=== PATIENT | female | born 1995 | race Hispanic/Latino ===

== ENCOUNTER 2021-04-29 13:01 | Emergency (ER) | payer MEDICARE, MEDICAID ==
[2021-04-29 14:34] LABS: #Eosinphils 0.1 10x3/uL (0.0-0.5); #Monocytes 0.5 10x3/uL (0.0-1.1); %Basophils 0.2 % (0.0-2.0); %Eosinophils 0.7 % (0.0-6.0); %Lymphocytes 9.1 % (18.0-47.0); %Monocytes 5.4 % (0.0-10.0); %Neutrophils 84.1 % (40.0-75.0); Hemoglobin 11.1 g/dL (12.0-15.5); Mean Corpuscular HGB CONC 30.9 g/dL (32.0-36.0); Mean Corpuscular Hemoglobin 29.9 pg (27.0-33.0); Mean Corpuscular Volume 96.8 fl (81.6-98.3); Mean Platelet Volume 10.2 fl (7.4-10.4); Platelet Count 108 10x3/uL (150-450); RBC Distribution Width 17.5 % (11.5-14.5); Red Blood Cell (RBC) Count 3.71 10x6/uL (3.90-5.03); White Blood Cell (WBC) Count 8.3 10x3/uL (3.5-10.5)
[2021-04-29 14:47] LABS: ALT (SGPT) 65 U/L (8-55); AST (SGOT) 57 U/L (5-34); Albumin 3.4 g/dL (3.5-5.0); Alkaline Phosphatase 325 U/L (40-110); Anion Gap 14 mmol/L (10-20); Bilirubin, Total 0.2 mg/dL (0.2-1.2); CRP (Inflammatory) 1.96 mg/dL (= or < 0.5); Calc. Creatinine Clearance 0 mL/min (70-130); Carbon Dioxide 30 mmol/L (22-29); Chloride 95 mmol/L (98-107); Globulin 3.8 g/dL (2.4-3.5); Glucose 104 mg/dL (70-105); Potassium 3.1 mmol/L (3.5-5.1); Protein, Total 7.2 g/dL (6.0-8.3); Sodium 136 mmol/L (136-145)
[2021-04-29 14:49] LABS: SARS-CoV-2 NAA Rapid Test Not Detected (NotDetected)
[2021-04-29 14:57] LABS: BUN (Urea Nitrogen) 153 mg/dL (7.0-18.7)
== END 2021-04-29 23:38 | disposition home or self-care (01) ==
LOC: CSHERS 13:01
DX: G40.909 Epilepsy, unspecified, not intractable, without status epilepticus (principal); G91.9 Hydrocephalus, unspecified; Z20.822 Contact with and (suspected) exposure to COVID-19; I12.0 Hypertensive chronic kidney disease with stage 5 chronic kidney disease or end stage renal disease; N18.6 End stage renal disease; K21.9 Gastro-esophageal reflux disease without esophagitis; J45.909 Unspecified asthma, uncomplicated; Z79.899 Other long term (current) drug therapy
CPT/HCPCS: 70450; 71045; 80053; 83605; 85025; 86140; 87040; 99285; U0002; 87077; 90935; G0257

== ENCOUNTER 2021-09-16 08:03 | Inpatient (IN) | payer OTHER, MEDICARE, MEDICAID ==
[2021-09-16] MEDS ORDERED: EPINEPHrine 1 MG/ML AMP ONE ×2 (08:18→08:25)
[2021-09-16] MEDS ORDERED: Sodium Bicarb 50 MEQ/50 ML VIAL ONE (08:21)
[2021-09-16 08:54] LABS: Hemoglobin 10.5 g/dL (12.0-15.5); Mean Corpuscular HGB CONC 30.6 g/dL (32.0-36.0); Mean Corpuscular Hemoglobin 30.3 pg (27.0-33.0); Mean Corpuscular Volume 99.1 fl (81.6-98.3); Mean Platelet Volume 10.1 fl (7.4-10.4); Platelet Count 80 10x3/uL (150-450); RBC Distribution Width 20.9 % (11.5-14.5); Red Blood Cell (RBC) Count 3.46 10x6/uL (3.90-5.03); White Blood Cell (WBC) Count 7.7 10x3/uL (3.5-10.5)
[2021-09-16 08:55] LABS: MDiff Complete? YES
[2021-09-16 08:58] LABS: ALT (SGPT) 19 U/L (8-55); AST (SGOT) 23 U/L (5-34); Albumin 2.1 g/dL (3.5-5.0); Alkaline Phosphatase 150 U/L (40-110); Anion Gap 15 mmol/L (10-20); BUN (Urea Nitrogen) 67 mg/dL (7.0-18.7); Bilirubin, Total 0.4 mg/dL (0.2-1.2); Calc. Creatinine Clearance 0 mL/min (70-130); Calcium 7.3 mg/dL (7.8-10.44); Carbon Dioxide 18 mmol/L (22-29); Chloride 104 mmol/L (98-107); Globulin 2.1 g/dL (2.4-3.5); Glucose 71 mg/dL (70-105); Potassium 3.3 mmol/L (3.5-5.1); Protein, Total 4.2 g/dL (6.0-8.3); Sodium 134 mmol/L (136-145)
[2021-09-16 09:15] LABS: Anisocytosis SLIGHT = 6-15 cells (100X) (0-5/hpf); Band 3 % (5-11); Lymphocytes 21 % (21-51); Metamyelocyte 1 % (0-0); Monocytes 9 % (0-10); Myelocyte 1 % (0-0); Neutrophil 65 % (42-75); Platelet Morphology Comment Appears Decreased; Toxic Granulation SLIGHT
[2021-09-16] MEDS ORDERED: Hydrocortisone Sod Succ/PF 100 mg/2 ml Vial ONE (09:18)
[2021-09-16 10:20] LABS: SARS-CoV-2 NAA Rapid Test Not Detected (NotDetected)
[2021-09-16 10:22] LABS: ALV-art Gradient 600.425 mmHg (0-20); Actual Bicarbonate (HCO3a) 6.3 mEq/L (22-28); Base Excess (BEa) -20.8 mEq/L (-2.0 to +3.0); CO2 Tension 19.5 mmHg (35.0-45.0); Calcium, Ionized (arterial) 0.49 mmol/L (1.12-1.30); Carboxyhemoglobin (COHb) 0.9 gm% (0.0-3.0); Hemoglobin (Hb) 3.3 g/dL (12.0-16.0); O2 Tension (PaO2), arterial 88.2 mmHg (80.0-100.0); Puncture Site Other Site; RapidComm Collect By ER NURSE; pH, Arterial 7.13 (7.35-7.45)
[2021-09-16 10:24] LABS: Actual Bicarbonate (HCO3a) 17.3 mEq/L (22-28); Base Excess (BEa) -14.9 mEq/L (-2.0 to +3.0); CO2 Tension 72.6 mmHg (35.0-45.0); Calcium, Ionized (arterial) 1.14 mmol/L (1.12-1.30); Carboxyhemoglobin (COHb) 0.7 gm% (0.0-3.0); Potassium - ABG Lab 2.8 mmol/L (3.70-5.30); Puncture Site RBA; pH, Arterial 6.99 (7.35-7.45)
[2021-09-16] MEDS ORDERED: CEFEPIME IVPB SCH (11:00)
[2021-09-16] MEDS ORDERED: SODIUM CHLORIDE IVPB SCH (11:00)
[2021-09-16] MEDS ORDERED: ADMIXTURE FEE IVPB SCH (11:00)
[2021-09-16] MEDS ORDERED: Vancomycin HCl 750 MG in Sodium Chloride 0.9% 250 ML 250 ML IVPB SCH ×2 (11:00→17:00)
[2021-09-16] MEDS ORDERED: Ventilator Sedation Protocol 1 EACH FS PRN (12:30)
[2021-09-16 12:50] LABS: Lactic Acid 2.9 mmol/L (0.5-2.2)
[2021-09-16] MEDS ORDERED: Fentanyl BOLUS 250 ML IVPB PRN (13:15)
[2021-09-16] MEDS ORDERED: Morphine 2 MG/ML VIAL SLOW IVP PRN (13:15)
[2021-09-16] MEDS ORDERED: Lorazepam 2 MG/ML VIAL SLOW IVP PRN (13:15)
[2021-09-16] MEDS ORDERED: Propofol 1,000 MG/100 ML VIAL IV PRN (13:15)
[2021-09-16] MEDS ORDERED: Propofol BOLUS 1,000 MG/100 ML VIAL IV PRN (13:15)
[2021-09-16] MEDS ORDERED: fentaNYL Citrate-0.9 % NaCl/PF 100 ML IVPB SCH (13:15)
[2021-09-16] MEDS: Norepinephrine 8 MG/0.9% NS 250 ML IVPB PRN (13:51)
[2021-09-16] MEDS ORDERED: EPINEPHrine 4 MG in Dextrose 5% in Water 250 ML IV SCH (15:00)
[2021-09-16] MEDS ORDERED: HOLD VANCOMYCIN FOR LEVEL >20 FS SCH (15:15)
[2021-09-16] MEDS ORDERED: Vancomycin HCl 250 MG in Sodium Chloride 0.9% 100 ML IVPB SCH (17:00)
[2021-09-16] MEDS ORDERED: Vancomycin HCl 500 MG in Sodium Chloride 0.9% 100 ML IVPB SCH (17:00)
[2021-09-16] MEDS ORDERED: Vancomycin 1 GM in Premix Bag 1 BAG IVPB SCH (17:00)
[2021-09-16] MEDS ORDERED: Vancomycin Hemodialysis Sliding Scale FS SCH (17:45)
[2021-09-16] MEDS: levETIRAcetam in NS 1,000 MG in Premix Bag 1 BAG IVPB SCH (21:52)
[2021-09-16] MEDS ORDERED: Fosphenytoin Sodium 100 MG in Sodium Chloride 0.9% 50 ML IVPB SCH (22:00)
[2021-09-16 23:18] LABS: ALV-art Gradient 245.675 mmHg (0-20); Actual Bicarbonate (HCO3a) 22.2 mEq/L (22-28); Base Excess (BEa) -2.3 mEq/L (-2.0 to +3.0); CO2 Tension 37.3 mmHg (35.0-45.0); Calcium, Ionized (arterial) 1.07 mmol/L (1.12-1.30); Carboxyhemoglobin (COHb) 0.9 gm% (0.0-3.0); Hemoglobin (Hb) 12.4 g/dL (12.0-16.0); O2 Tension (PaO2), arterial 64.2 mmHg (80.0-100.0); Potassium - ABG Lab 3.4 mmol/L (3.70-5.30); Puncture Site RBA; pH, Arterial 7.39 (7.35-7.45)
[2021-09-17 04:02] LABS: Hemoglobin 11.5 g/dL (12.0-15.5); Mean Corpuscular HGB CONC 30.3 g/dL (32.0-36.0); Mean Corpuscular Hemoglobin 29.4 pg (27.0-33.0); Mean Corpuscular Volume 97.2 fl (81.6-98.3); Platelet Count 63 10x3/uL (150-450); Red Blood Cell (RBC) Count 3.91 10x6/uL (3.90-5.03); White Blood Cell (WBC) Count 6.8 10x3/uL (3.5-10.5)
[2021-09-17 04:07] LABS: Anion Gap 16 mmol/L (10-20); BUN (Urea Nitrogen) 23 mg/dL (7.0-18.7); Calc. Creatinine Clearance 18 mL/min (70-130); Calcium 7.8 mg/dL (7.8-10.44); Carbon Dioxide 24 mmol/L (22-29); Chloride 100 mmol/L (98-107); Glucose 83 mg/dL (70-105); Potassium 3.2 mmol/L (3.5-5.1); Sodium 137 mmol/L (136-145)
[2021-09-17] MEDS: Norepinephrine 8 MG/0.9% NS 250 ML IVPB PRN (04:14)
[2021-09-17 06:23] LABS: MDiff Complete? YES
[2021-09-17 06:24] LABS: Platelet Morphology Comment Appears Decreased
[2021-09-17 06:25] LABS: Anisocytosis SLIGHT = 6-15 cells (100X) (0-5/hpf)
[2021-09-17 06:26] LABS: Band 9 % (5-11); Lymphocytes 11 % (21-51); Monocytes 3 % (0-10); Neutrophil 77 % (42-75); Nucleated RBC 1 % (0)
[2021-09-17 08:06] LABS: Vancomycin, Random 15.9 ug/mL (See Comment)
[2021-09-17] MEDS: levETIRAcetam in NS 1,000 MG in Premix Bag 1 BAG IVPB SCH (09:09)
[2021-09-17] MEDS ORDERED: Hydrocortisone Sod Succ/PF 100 mg/2 ml Vial IVP SCH ×2 (11:00)
[2021-09-17] MEDS ORDERED: Dextrose 50% Abboject 50 ML SYRINGE ONE (11:01)
[2021-09-17 11:15] LABS: Glucose 56 mg/dL (70-105)
[2021-09-17] MEDS ORDERED: VANCOMYCIN 1.25 GM/250 ML BAG IVPB SCH (11:15)
[2021-09-17] MEDS ORDERED: Cefepime 1 GM in Sodium Chloride 0.9% 100 ML IVPB SCH (11:15)
[2021-09-17] MEDS: Cefepime 0.5 GM, Admixture Fee 1 EACH in Sodium Chloride 0.9% 50 ML IVPB SCH (12:51)
[2021-09-17] MEDS: Hydrocortisone Sod Succ/PF 100 mg/2 ml Vial IVP SCH ×2 (15:09→22:04)
[2021-09-17] MEDS ORDERED: levETIRAcetam in NS 500 MG in Premix Bag 1 BAG IVPB SCH (16:46)
[2021-09-17] MEDS: levETIRAcetam 500 MG/5 ML VIAL SLOW IVP SCH (22:03)
[2021-09-18 04:46] LABS: Anion Gap 14 mmol/L (10-20); BUN (Urea Nitrogen) 31 mg/dL (7.0-18.7); Calc. Creatinine Clearance 14 mL/min (70-130); Calcium 8.3 mg/dL (7.8-10.44); Carbon Dioxide 22 mmol/L (22-29); Chloride 100 mmol/L (98-107); Glucose 144 mg/dL (70-105); Potassium 3.8 mmol/L (3.5-5.1); Sodium 132 mmol/L (136-145)
[2021-09-18] MEDS: Hydrocortisone Sod Succ/PF 100 mg/2 ml Vial IVP SCH ×3 (07:08→21:13)
[2021-09-18] MEDS: Dextrose 10% in Water 1,000 ML IV SCH ×2 (07:41→13:16)
[2021-09-18 07:58] LABS: Vancomycin, Random 13.8 ug/mL (See Comment)
[2021-09-18] MEDS: levETIRAcetam 500 MG/5 ML VIAL SLOW IVP SCH ×2 (08:33→21:13)
[2021-09-18] MEDS ORDERED: Famotidine/PF 20 mg/2ml Vial SLOW IVP SCH (09:00)
[2021-09-18] MEDS: Cefepime 0.5 GM, Admixture Fee 1 EACH in Sodium Chloride 0.9% 50 ML IVPB SCH (14:10)
[2021-09-18 14:28] VITALS: BMI 17.7
[2021-09-18] MEDS ORDERED: Dextrose 10% in Water 1,000 ML IV SCH (14:30)
[2021-09-18 19:14] LABS: Actual Bicarbonate (HCO3v) 17 mEq/L (22-28); Hemoglobin (Hb) 10.3 g/dL (11.7-15.5)
[2021-09-18 19:15] LABS: Calcium, Ionized (venous) 1.11 mmol/L (1.16-1.32); Chloride (VBG) 98 mmol/L (98-106); Potassium (VBG) 4.44 mmol/L (3.70-5.30); Sodium 124.6 mmol/L (133-146)
[2021-09-19 00:26] VITALS: BP 125/81
[2021-09-19 04:11] LABS: Puncture Site Other Site; pH (venous) 7.35 (7.32-7.43)
[2021-09-19 11:10] LABS: Actual Bicarbonate (HCO3a) 19.3 mEq/L (22-28); Base Excess (BEa) -7.3 mEq/L (-2.0 to +3.0); CO2 Tension 42.8 mmHg (35.0-45.0); Calcium, Ionized (arterial) 1.11 mmol/L (1.12-1.30); Hemoglobin (Hb) 13.2 g/dL (12.0-16.0); O2 Tension (PaO2), arterial 104.9 mmHg (80.0-100.0); Potassium - ABG Lab 3.5 mmol/L (3.70-5.30); Puncture Site LBA; Temperature 34.2 C; pH, Arterial 7.27 (7.35-7.45)
== END 2021-09-19 00:20 | disposition short-term general hospital (02) | DRG 208 ==
LOC: CSHERS 08:03 → CSHIMCU 11:06
PROVIDERS: ADMIT Internal Medicine; ATTEND Internal Medicine
PROC: 5A1D70Z Performance of Urinary Filtration, Intermittent, Less than 6 Hours Per Day (ICD-10-PCS; principal; 2021-09-16)
PROC: 5A1945Z Respiratory Ventilation, 24-96 Consecutive Hours (ICD-10-PCS; 2021-09-16)
PROC: 5A12012 Performance of Cardiac Output, Single, Manual (ICD-10-PCS; 2021-09-16)
PROC: 3E033XZ Introduction of Vasopressor into Peripheral Vein, Percutaneous Approach (ICD-10-PCS; 2021-09-16)
PROC: 0BH18EZ Insertion of Endotracheal Airway into Trachea, Via Natural or Artificial Opening Endoscopic (ICD-10-PCS; 2021-09-16)
DX: J96.01 Acute respiratory failure with hypoxia (principal); J69.0 Pneumonitis due to inhalation of food and vomit; I46.9 Cardiac arrest, cause unspecified; N18.6 End stage renal disease; R57.0 Cardiogenic shock; I67.5 Moyamoya disease; I13.2 Hypertensive heart and chronic kidney disease with heart failure and with stage 5 chronic kidney disease, or end stage renal disease; E87.2 Acidosis; I42.2 Other hypertrophic cardiomyopathy; E87.1 Hypo-osmolality and hyponatremia; E87.70 Fluid overload, unspecified; I34.0 Nonrheumatic mitral (valve) insufficiency; E03.9 Hypothyroidism, unspecified; G40.909 Epilepsy, unspecified, not intractable, without status epilepticus; F79 Unspecified intellectual disabilities; M81.0 Age-related osteoporosis without current pathological fracture; J45.909 Unspecified asthma, uncomplicated; I95.9 Hypotension, unspecified; G47.9 Sleep disorder, unspecified; K21.9 Gastro-esophageal reflux disease without esophagitis; E87.6 Hypokalemia; D63.1 Anemia in chronic kidney disease; Z20.822 Contact with and (suspected) exposure to COVID-19; Z99.2 Dependence on renal dialysis; Z98.890 Other specified postprocedural states; Z88.1 Allergy status to other antibiotic agents; Z88.2 Allergy status to sulfonamides; Z88.8 Allergy status to other drugs, medicaments and biological substances; Z79.899 Other long term (current) drug therapy; Z86.73 Personal history of transient ischemic attack (TIA), and cerebral infarction without residual deficits; Z87.440 Personal history of urinary (tract) infections; Z93.3 Colostomy status
CPT/HCPCS: 36415; 36416; 36600; 70450; 71045; 80048; 80053; 80202; 82330; 82805; 83605; 84484; 85025; 87040; 87070; 87086; 87205; 90935; 93005; 93010; 94002; 94003; 94760; G0257; J0171; J0692; J1720; J1953; J2060; J2704; J3370; J3490; J7050; J7070; J7999; Q2009; S0028; U0002